=== PATIENT | female | born 1935 | race Caucasian/White ===

== ENCOUNTER 2020-07-05 09:16 | Outpatient (CLI) | payer MEDICARE, SELFPAY ==
--- NOTE | 2020-07-05 09:18 | ECG_ITS ---
Measurements Intervals [place] Rate: 72 P: 64 MI: 194 QRS: -11 QRSD: 85 T: 33 QT: 364 QTc: 399 Interpretive Statements SINUS RHYTHM BASELINE ARTIFACT- II, III, AVF NORMAL ECG Electronically Signed On 07-05-2020 10:02:56 CDT by Jamie Irwin D.O.
== END 2020-07-05 09:17 | disposition home or self-care (01) ==
LOC: ANHSURGERY 09:18
PROVIDERS: PCP Internal Medicine; Visit Provider Urology
DX: Z01.818 Encounter for other preprocedural examination (principal); I10 Essential (primary) hypertension
CPT/HCPCS: 93005

== ENCOUNTER 2020-07-11 01:06 | Outpatient (CLI) | payer MEDICARE, SELFPAY ==
[2020-07-11 19:20] LABS: SARS-CoV-2 RNA PCR Negative
== END 2020-07-11 01:07 | disposition home or self-care (01) ==
LOC: ANHCOVIDDT 01:06
PROVIDERS: PCP Internal Medicine; Visit Provider Urology
DX: Z01.812 Encounter for preprocedural laboratory examination (principal); Z20.828 Contact with and (suspected) exposure to other viral communicable diseases
CPT/HCPCS: 87635; C9803; U0003

== ENCOUNTER 2020-07-13 01:46 | Day surgery (SDC) | payer MEDICARE, SELFPAY ==
[2020-07-04 12:49] VITALS: BMI 25.8
--- NOTE | 2020-07-08 14:46 | PM.IMHP ---
H&P: HPI History of Present Illness Date/Time: 07/08/20 14:46 Chief complaint: Over active Bladder Narrative: Daisy Ash is a 85 year old female who desires Interstim removeal PMFSH Family History Family History (Updated 06/29/14 @ 07:13 by DOCTOR UNKNOWN) Father Family history of coronary artery disease Social History Social History Smoking status: Never smoker Second hand tobacco smoke exposure: No Alcohol intake: never Spiritual care concerns: No Meds Home Medications and Allergies Home Medications Medication Instructions Recorded Confirmed Type amlodipine 2.5 mg PO DAILY 07/04/20 07/04/20 History calcium carbonate-vitamin D3 1 tablet PO DAILY 07/04/20 07/04/20 History [Caltrate with Vitamin D3] cholecalciferol (vitamin D3) 125 mcg PO DAILY 07/04/20 07/04/20 History [Vitamin D3] clopidogrel 75 mg PO DAILY 07/04/20 07/04/20 History ketotifen fumarate [Zaditor] 1 drp OPHTHALMIC (EYE) BID 07/04/20 07/04/20 History levothyroxine 50 mcg PO DAILY 07/04/20 07/04/20 History multivitamin 1 tablet PO DAILY 07/04/20 07/04/20 History pramipexole 0.125 mg PO HS 07/04/20 07/04/20 History pravastatin 40 mg PO DAILY 07/04/20 07/04/20 History propranolol 80 mg PO HS 07/04/20 07/04/20 History Allergies Allergy/AdvReac Type Severity Reaction Status Date / Time pantoprazole [From Protonix] AdvReac Severe Hallucinati Verified 07/04/20 12:31 ng gabapentin AdvReac Mild Other Verified 07/04/20 12:31 ketorolac AdvReac Mild Nausea and Verified 07/04/20 12:31 Vomiting meperidine AdvReac Mild Nausea and Verified 07/04/20 12:31 Vomiting nitrofurantoin AdvReac Mild Diarrhea, Verified 11/25/18 13:08 Vomitting, Nausea Exam Const: General: no acute distress HENMT: Mouth: Yes moist mucous membranes Eyes: EOM: EOMs intact bilaterally Neck: Neck: supple Resp: Effort & Inspection: normal respiratory effort Cardio: Rate: regular rate GI: GI Palp: Yes Soft to palpation Skin: General skin exam: normal color Neuro: General: gait normal Extrem: General: normal to inspection Psych: Mental Status: mental status grossly normal Assessment and Plan Assessment and plan (1) Overactive bladder: Code(s): N32.81 - Overactive bladder Status: Acute Assessment and Plan: desires removal of her InterStim device
--- NOTE | 2020-07-13 07:29 | WPDHPUPDATE1 ---
History and Physical Update Update Date/Time: 07/13/20 07:29 History and Physical has been reviewed, including an updated exam of the patient. There are NO changes in the patient's condition. Risks, benefits, and alternatives have been discussed and questions answered. Patient agrees to proceed with procedure.
[2020-07-13 07:44] VITALS: BP 139/67; PULSE 75; RESP 18; TEMP 36.8; O2SAT 100
[2020-07-13] MEDS: LACTATED RINGERS 1,000 ML 30 ML IV CONT (08:00)
--- NOTE | 2020-07-13 08:03 | WPDANESEPP ---
Anes - Eval Pre Procedure Procedure: Operation Date: 07/13/20 09:30 Proposed Procedures p Removal of Interstim - Rhett Suleiman Fraga MD Date/Time: 07/13/20 08:03 Pre Op Diagnosis: Over active Bladder Patient Data Age: 85 Gender: F Height: 5 ft 4 in Weight: 68.3 kg Last Vital Signs Temp 98.2 F 07/13/20 07:44 Pulse 75 07/13/20 07:44 Resp 18 07/13/20 07:44 BP 139/67 07/13/20 07:44 Pulse Ox 100 07/13/20 07:44 Allergies Allergy/AdvReac Type Severity Reaction Status Date / Time pantoprazole [From Protonix] AdvReac Severe Hallucinati Verified 07/13/20 07:50 ng gabapentin AdvReac Mild Other Verified 07/13/20 07:50 ketorolac AdvReac Mild Nausea and Verified 07/13/20 07:50 Vomiting meperidine AdvReac Mild Nausea and Verified 07/13/20 07:50 Vomiting nitrofurantoin AdvReac Mild Diarrhea, Verified 07/13/20 07:50 Vomitting, Nausea Home Medications Medication Instructions Recorded Confirmed Type amlodipine 2.5 mg PO DAILY 07/04/20 07/13/20 History calcium carbonate-vitamin D3 1 tablet PO DAILY 07/04/20 07/13/20 History [Caltrate with Vitamin D3] cholecalciferol (vitamin D3) 125 mcg PO DAILY 07/04/20 07/13/20 History [Vitamin D3] clopidogrel 75 mg PO DAILY 07/04/20 07/13/20 History ketotifen fumarate [Zaditor] 1 drp OPHTHALMIC (EYE) BID 07/04/20 07/13/20 History levothyroxine 50 mcg PO DAILY 07/04/20 07/13/20 History multivitamin 1 tablet PO DAILY 07/04/20 07/13/20 History pramipexole 0.125 mg PO HS 07/04/20 07/13/20 History pravastatin 40 mg PO DAILY 07/04/20 07/13/20 History propranolol 80 mg PO HS 07/04/20 07/13/20 History Patient hx anesthesia problems: none Family hx anesthesia problems: none PMFSH Past Medical History Medical History (Updated 07/13/20 @ 08:06 by Og Reynolds CRNA) GERD (gastroesophageal reflux disease) HTN (hypertension) with goal to be determined Hypothyroidism Overactive bladder PROMISE (stress urinary incontinence, female) TIA (transient ischemic attack) TMJ (dislocation of temporomandibular joint) Family History Family History Father Family history of coronary artery disease Social History Social History Smoking status: Never smoker Second hand tobacco smoke exposure: No Alcohol intake: never Living arrangements: alone Spiritual care concerns: No Exam Day of Procedure 07/13/20 08:03 Patient weight: overweight Heart: regular rate and rhythm Lungs: clear to auscultation Airway: Mallampati scale class II Neurological: alert and oriented
--- NOTE | 2020-07-13 08:08 | P.PNAN_ITS ---
Anes - Eval Final PreProcedure Day of Procedure 07/13/20 08:08 Patient weight: overweight Heart: regular rate and rhythm Lungs: clear to auscultation Airway: Mallampati scale class II Neurological: other (alert) Last oral intake: >/= 8 hours ASA classification: III Emergent: no Anesthetic plan: proceed Anesthesia type and monitoring: general GIVS and standard monitoring Informed Consent: The patient's anesthetic plan and its attendant risks and b enefits were discussed with the patient/family/POA. Questions were solicited and answers provided to the satisfaction of the patient/family/POA.
[2020-07-13] MEDS: ceFAZolin 2 GM/D5W 50 ML 2 GM/50 ML BAG IVPB (08:12)
[2020-07-13] MEDS: BUPIVACAINE/EPINEPHRINE 0.25% 50 ML VIAL 10 ML INFILTRATE (08:31)
--- NOTE | 2020-07-13 08:44 | P.OP_ITS ---
Procedure Note - Detailed Date of procedure: 07/13/20 Pre-op diagnosis: Over active Bladder Post-op diagnosis: same Procedure performed: Removal InterStim device: 64797, [id number]. Description of procedure: She was correctly identified and informed consent obtained. From the operating room. She was given mac anesthesia. She was placed in a prone position. She was prepped and draped in a standard fashion. Time-out performed. I anesthetized the skin over the pulse generator. I incised the skin explained to the pulse generator. I removed the capsule. I located the side of the lead. Anesthetize the skin. I incised the skin. I fou nd the lead and removed in its entirety. Irrigate all wounds. Closed subcu tissues with 2 0 Vicryl stitch. Skin with 4 OVicryl. Glue was applied. He was awakened and taken to the PACU in stable condition. Anesthesia: MAC Surgeon: Rhett Fraag MD Estimated blood loss (mL): 1 Drains: No Packing: No Pathology: none sent Complications: No immediate complications Condition: stable Disposition: PACU
[2020-07-13 08:48] VITALS: BP 97/60; PULSE 65; RESP 16; O2SAT 95
[2020-07-13 09:15] VITALS: BP 130/67; PULSE 62; RESP 16; O2SAT 96
[2020-07-13 09:30] VITALS: BP 116/62; PULSE 61; RESP 14
== END 2020-07-13 09:47 | disposition home or self-care (01) ==
PROVIDERS: PCP Internal Medicine; Visit Provider Urology
PROC: (CPT 64585; principal; 2020-07-13 09:30)
DX: Z45.42 Encounter for adjustment and management of neurostimulator (principal); N32.81 Overactive bladder; N39.3 Stress incontinence (female) (male); I10 Essential (primary) hypertension; E03.9 Hypothyroidism, unspecified; K21.9 Gastro-esophageal reflux disease without esophagitis; Z79.02 Long term (current) use of antithrombotics/antiplatelets; Z86.73 Personal history of transient ischemic attack (TIA), and cerebral infarction without residual deficits
CPT/HCPCS: 64585; 64595; J0690; J1100; J1940; J2250; J2370; J2405; J2704; J3010; J7120

== ENCOUNTER 2022-10-16 01:23 | Day surgery (SDC) | payer MEDICARE, SELFPAY ==
[2022-10-08 08:37] VITALS: BMI 26.6
--- NOTE | 2022-10-16 09:09 | WPDANESEPPF ---
Anes - Initial Pre Proc Eval Procedure: Operation Date: 10/16/22 10:45 Proposed Procedures p Esophagogastroduodenoscopy & Colonoscopy - Rigo Aleman MD Date/Time: 10/16/22 09:09 Surgeon: Rigo Aleman MD Pre Op Diagnosis: abn xray,GERD,nausea,vomiting Patient Data Age: 87 Gender: F Height: 1.63 m Weight: 70.25 kg Allergies Allergy/AdvReac Type Severity Reaction Status Date / Time pantoprazole [From Protonix] Allergy Severe Hallucinati Verified 10/16/22 09:43 ng gabapentin Allergy Intermediate Numbness Verified 10/16/22 09:43 DACIA Inhibitors AdvReac Severe Cough Verified 10/16/22 09:43 ketorolac AdvReac Mild Nausea and Verified 10/16/22 09:43 Vomiting meperidine AdvReac Mild Nausea and Verified 10/16/22 09:43 Vomiting nitrofurantoin AdvReac Mild Diarrhea, Verified 10/16/22 09:43 Vomitting, Nausea Home Medications Medication Instructions Recorded Confirmed Type amlodipine 2.5 mg tablet 2.5 mg PO DAILY 07/04/20 10/08/22 History calcium carbonate 600 mg-vitamin 2 tablet PO DAILY 07/04/20 10/08/22 History D3 20 mcg (800 unit) tablet (Caltrate with Vitamin D3) clopidogrel 75 mg tablet 75 mg PO DAILY 07/04/20 10/08/22 History levothyroxine 50 mcg tablet 50 mcg PO DAILY 07/04/20 10/08/22 History multivitamin 1 tablet PO DAILY 07/04/20 10/08/22 History pramipexole 0.125 mg tablet 0.125 mg PO HS 07/04/20 10/08/22 History famotidine 40 mg tablet 40 mg PO BID 1 month #60 tabs 09/11/22 10/08/22 Rx pravastatin 40 mg tablet 40 mg PO DAILY #90 tabs 09/18/22 10/08/22 Rx propranolol 80 mg capsule,24 80 mg PO HS #90 caps 09/18/22 10/08/22 Rx hr,extended release Patient hx anesthesia problems: none Family hx anesthesia problems: none Results Review: All pre-operative results and documents have been reviewed as part of the pre-operative evaluation. [facility] Past Medical History Medical History (Updated 09/11/22 @ 15:09 by Luis Herbert MD) Back pain GERD (gastroesophageal reflux disease) GERD (gastroesophageal reflux disease) History of broken leg Both ankles History of vaginal delivery HTN (hypertension) with goal to be determined Hypothyroidism Mass of urethra Nausea and vomiting Need for vaccination Ovarian cyst Overactive bladder PROMISE (stress urinary incontinence, female) TIA (transient ischemic attack) TMJ (dislocation of temporomandibular joint) Surgical History Surgical History History of repair of rotator cuff Bilateral Family History Family History Father Family history of coronary artery disease Alcoholism Hypertension Thyroid disorder Social History Social History Smoking status: Never smoker Second hand tobacco smoke exposure: No Alcohol intake: never Substance use: never Substance use type: does not use Living arrangements: alone Spiritual care concerns: No Anes - Eval Final PreProcedure Day of Procedure 10/16/22 09:09 Patient weight: overweight Heart: regular rate and rhythm Lungs: clear to auscultation Airway: Mallampati scale class II Neurological: other (alert) Last oral intake: >/= 8 hours ASA classification: III Emergent: no Anesthetic plan: proceed Anesthesia type and monitoring: general GIVS and standard monitoring Results Review: All pre-operative results and documents have been reviewed as part of the pre-operative evaluation. Informed Consent: The patient's anesthetic plan and its attendant risks and benefits were discussed with the patient/family/POA. Questions were solicited and answers provided to the satisfaction of the patient/family/POA.
[2022-10-16 09:45] VITALS: BP 144/50; PULSE 74; RESP 18; TEMP 36.8; O2SAT 99
[2022-10-16] MEDS: LACTATED RINGERS 1,000 ML 150 ML IV CONT (10:06)
--- NOTE | 2022-10-16 10:22 | PM.HPGS ---
History of Present Illness History of Present Illness Consent: Risks, benefits, and alternatives have been discussed and questions answered. Patient agrees to proceed with procedure. Chief complaint: abn xray,GERD,nausea,vomiting Narrative: Daisy Ash is a 87 year old female Presents with multiple complaints. She is scheduled for colonoscopy an EGD today. Recently seen in the emergency room in [facility]. Also seen by nurse practitioner in the office. Patient complains of vomiting vague abdominal bloating. A CT scan in the Emergency Room raise a question of a lesion in the transverse colon. Patient has been given a trial of famotidine 40mg p.o. daily but has completed this. She states that did not help her intermittent vomiting. Patient states she has been vomiting intermittently for several years. And that it is improved over recent weeks. Her family history is noncontributory. Patient denies any weight loss or bleeding. She is a somewhat difficult historian. Review of Systems Review of Systems: Review of systems noncontributory. [facility] Past Medical History Medical History (Updated 10/16/22 @ 10:24 by Rigo Aleman MD) Back pain GERD (gastroesophageal reflux disease) GERD (gastroesophageal reflux disease) History of broken leg Both ankles History of vaginal delivery HTN (hypertension) with goal to be determined Hypothyroidism Mass of urethra Nausea and vomiting Need for vaccination Ovarian cyst Overactive bladder PROMISE (stress urinary incontinence, female) TIA (transient ischemic attack) TMJ (dislocation of temporomandibular joint) Surgical History Surgical History History of repair of rotator cuff Bilateral Family History Family History Father Family history of coronary artery disease Alcoholism Hypertension Thyroid disorder Social History Social History Smoking status: Never smoker Second hand tobacco smoke exposure: No Alcohol intake: never Substance use: never Substance use type: does not use Living arrangements: alone Spiritual care concerns: No Meds Home Medications and Allergies Home Medications Medication Instructions Recorded Confirmed Type amlodipine 2.5 mg tablet 2.5 mg PO DAILY 07/04/20 10/08/22 History calcium carbonate 600 mg-vitamin 2 tablet PO DAILY 07/04/20 10/08/22 History D3 20 mcg (800 unit) tablet (Caltrate with Vitamin D3) clopidogrel 75 mg tablet 75 mg PO DAILY 07/04/20 10/08/22 History levothyroxine 50 mcg tablet 50 mcg PO DAILY 07/04/20 10/08/22 History multivitamin 1 tablet PO DAILY 07/04/20 10/08/22 History pramipexole 0.125 mg tablet 0.125 mg PO HS 07/04/20 10/08/22 History famotidine 40 mg tablet 40 mg PO BID 1 month #60 tabs 09/11/22 10/08/22 Rx pravastatin 40 mg tablet 40 mg PO DAILY #90 tabs 09/18/22 10/08/22 Rx propranolol 80 mg capsule,24 80 mg PO HS #90 caps 09/18/22 10/08/22 Rx hr,extended release Allergies Allergy/AdvReac Type Severity Reaction Status Date / Time pantoprazole [From Protonix] Allergy Severe Hallucinati Verified 10/16/22 09:43 ng gabapentin Allergy Intermediate Numbness Verified 10/16/22 09:43 DACIA Inhibitors AdvReac Severe Cough Verified 10/16/22 09:43 ketorolac AdvReac Mild Nausea and Verified 10/16/22 09:43 Vomiting meperidine AdvReac Mild Nausea and Verified 10/16/22 09:43 Vomiting nitrofurantoin AdvReac Mild Diarrhea, Verified 10/16/22 09:43 Vomitting, Nausea Vital Signs Vital Signs - 24 hr 10/16/22 09:45 Temperature 98.3 F Pulse Rate 74 Respiratory Rate 18 Blood Pressure 144/50 H Pulse Oximetry 99 Oxygen Delivery Room Air Exam Narrative: Physical exam reveals patient to be alert. Vital signs stable. HEENT exam is unremarkable. Patient is anicteric. Lungs are clear t
--- NOTE | 2022-10-16 10:47 | SUR.OPER ---
EGD ended at 1041. Colonoscopy began at 1046.
[2022-10-16 11:02] VITALS: BP 104/54; PULSE 66; RESP 26; O2SAT 96
[2022-10-16 11:12] VITALS: BP 118/81; PULSE 61; RESP 24; O2SAT 100
[2022-10-16 11:22] VITALS: BP 126/70; PULSE 64; RESP 20; O2SAT 95
--- NOTE | 2022-10-16 11:22 | SUR.PHASEII ---
In addition to charted information patient received at discharge, pt also received information regarding bland diet.
== END 2022-10-16 11:35 | disposition home or self-care (01) ==
PROVIDERS: PCP Family Medicine; Visit Provider Internal Medicine Gastroenterology
PROC: 0DJ08ZZ Inspection of Upper Intestinal Tract, Via Natural or Artificial Opening Endoscopic (ICD-10-PCS; CPT 43235; principal; 2022-10-16 10:45)
DX: K51.40 Inflammatory polyps of colon without complications (principal); K57.30 Diverticulosis of large intestine without perforation or abscess without bleeding; K64.8 Other hemorrhoids; K26.3 Acute duodenal ulcer without hemorrhage or perforation; K21.00 Gastro-esophageal reflux disease with esophagitis, without bleeding; K44.9 Diaphragmatic hernia without obstruction or gangrene; I10 Essential (primary) hypertension; E03.9 Hypothyroidism, unspecified; Z86.73 Personal history of transient ischemic attack (TIA), and cerebral infarction without residual deficits; Z79.02 Long term (current) use of antithrombotics/antiplatelets
CPT/HCPCS: 45385; 43239; 87081; 88305; J2370; J2704; J7120

== ENCOUNTER 2025-05-04 15:39 | Emergency (ER) | payer MEDICARE, SELFPAY ==
--- OUTSIDE RECORDS SUMMARY | 2025-05-04 15:41 | XMS_ITS | Encounter Summary ---
Author Organization [facility] Address [address] [place] [address] Care Team Providers Care Lockstitch Sleeve Maker Name Role Phone Elvin Larson MD Primary Care Provider [phone] Luis Herbert MD Primary Care Provider [phone] Emilia Chavira PA-C Primary Care Provider [phone] Encounter Details Date Type Department Care Team (Late st Contact Info) Description 12/23/2019 Therapy Plan [facility] [employer] [facility] [address] [place], [place] [id number] Elvin Larson MD [address] [place], [place] [id number] Social History Tobacco Use Types Packs/Day Years Used Date Smoking Tobacco: Never Smokeless Tobacco: Never Alcohol Use Standard Drinks/Week Comments No 0 (1 standard drink = 0.6 oz pur e alcohol) Comments No Sex and Gender Information Value Date Recorded Sex Assigned at Female 02/07/2019 1:24 PM CDT Legal Sex Female 10:07 PM CDT Gender Identity Female 02/07/2019 1:24 PM CDT Sexual Orientation Straight 02/07/2019 1: 24 PM CDT Occupation Industry Job Start Date Job End Date Not on file Not on file Not on file Not on file documented as of this encounter Plan of Treatment Not on file documented as of this encounter Visit Diagnoses Not on filedocumented in this encounter Additional Health Concerns Infection Onset Date Last Indicated Resolved Time COVID-19 Rule Out 09/07/2022 09/07/2022 09/07/2022 8:38 AM RETAIL SUPPORT SPECIALIST documented as of this encounter Care Teams Lockstitch Sleeve Maker Relationship Specialty Start Date End Date Elvin Larson MD PCP - General 12/30/16 09/06/22 Luis Herbert MD [address] [place] [id number] PCP - General FAMILY PRACTICE 09/07/22 05/19/24 Emilia Chavira PA-C [address] [place] [id number] PCP - General PHYSICIAN HELICOPTER DISPATCHER 05/20/24 documented as of this encounter
--- OUTSIDE RECORDS SUMMARY | 2025-05-04 15:41 | XMS_ITS | Encounter Summary ---
Author Organization [facility] Address [address] [place] [address] Care Team Providers Care Coke Drawer Hand Name Role Phone Elvin Larson MD Primary Care Provider [phone] Luis Herbert MD Primary Care Provider [phone] Emilia Chavira PA-C Primary Care Provider [phone] Encounter Details Date Type Department Care Team (Late st Contact Info) Description 01/28/2018 Abstract [facility] CONVERSION [address] [place] [address] , Generic Conversion, Social History Tobacco Use Types Packs/Day Years Used Date Smoking Tobacco: Never Smokeless Tobacco: Never Alcohol Use Standard Drinks/Week Comments No 0 (1 standard drink = 0.6 oz pur e alcohol) Comments Unknown Sex and Gender Information Value Date Recorded [...] Rule Out 09/07/2022 09/07/2022 09/07/2022 8:38 AM DATA WAREHOUSE CONSULTANT documented as of this encounter Care Teams Coke Drawer Hand Relationship Specialty Start Date End Date Elvin Larson MD PCP - General 12/30/16 09/06/22 Luis Herbert MD [address] [place] [id number] PCP - General FAMILY PRACTICE 09/07/22 05/19/24 Emilia Chavira PA-C [address] [place], [place] [address] [place] [address] PCP - General PHYSICIAN ARCHIVES TECHNICIAN 05/20/24 documented as of this encounter
--- OUTSIDE RECORDS SUMMARY | 2025-05-04 15:41 | XMS_ITS | Encounter Summary ---
Author Organization [facility] Address [address] [place] [address] Care Team Providers Care Furnace Charger Name Role Phone Elvin Larson MD Primary Care Provider [phone] Ang Hammer MD Primary Care Provider [phone] Luis Herbert MD Primary Care Provider [phone] Emilia Chavira PA-C Primary Care Provider [phone] Encounter Details Date Type Department Care Team (Late st Contact Info) Description 12/20/2014 Abstract [facility] CONVERSION [address] [place] [address] , Generic Eduardo, Social History Tobacco Use Types Packs/Day Years Used Date Smoking Tobacco: Never Assessed Comments Unknown Sex and Gender Information Value Date Recorded Sex Assigned at Female 02/07/2019 1:24 PM CDT Legal Sex Female 10:07 PM CDT Gender Identity Female 02/07/2019 1:24 PM CDT Sexual Orientation Straight 02/07/2019 1: 24 PM CDT documented as of this encounter Plan of Treatment Not on file documented as of this encounter Visit Diagnoses Not on filedocumented in this encounter Additional Health Concerns Infection Onset Date Last Indicated Resolved Time COVID-19 Rule Out 09/07/2022 09/07/2022 09/07/2022 8:38 AM TIN ROOFER documented as of this encounter Care Teams Furnace Charger Relationship Specialty Start Date End Date Elvin Larson MD PCP - General 12/30/16 09/06/22 Ang Hammer MD PCP - General 07/01/12 12/29/16 Luis Herbert MD [address] [place] [id number] PCP - General FAMILY PRACTICE 09/07/22 05/19/24 Emilia Chavira PA-C [address] [place] [id number] PCP - General PHYSICIAN COMPLIANCE MANAGER 05/20/24 documented as of this encounter
--- OUTSIDE RECORDS SUMMARY | 2025-05-04 15:41 | XMS_ITS | Continuity of Care Document ---
Author Organization [facility] Address [address] [place] [address] Phone Care Team Providers Care Application Assistant Name Role Phone No Information Unavailable Unavailable Medications Medication Instructions Dosage Effective Dates (start - stop) Status Comments No Drug Therapy Prescribed Advance Directives Directive Yes / No Effective Date File Name No Information Encounters Encounter Description Practice Location Reason(s) For Visit Diagnoses Date Provider Providers Copied on Encounter [facility], [address] [place] [address], [address], [place] tel:[phone] No Information No Information Family History Family Member Type Diagnosis Age At Onset No Information Payers Payer name Insurance type Covered democrat ID Authoriza tion(s) No Information Social History Type Description Quantity Date Captured Comments Sex Female Smoking Status No Information Chief Complaint And Reason For Visit No Information History Of Present Illness Encounter Date Complaint History Of Prese nt Illness No Information Medications Administered Medication Instructions Dosage Effective Dates (start - stop) Status Comments No Drug Therapy Prescribed Instructions Date Instruction Additional Infor mation No Information Assessments Type Assessment Date No Information
--- OUTSIDE RECORDS SUMMARY | 2025-05-04 15:41 | XMS_ITS | Referral Summary ---
Author Organization [facility] Address [address] [place] [address] Care Team Providers Care Artificial Marble Worker Name Role Phone Elvin Larson MD Primary Care Provider [phone] Allergies Active Allergy Reactions Criticality Noted Date Comments Ketorolac Unknown 04/23/2020 Meperidine Unknown 04/23/2020 Nitrofurantoin Unknown 04/23/2020 Medications propranolol LA (INDERAL LA) 80 mg 24 hr capsule Take by mouth daily 03/16/2020 Active levothyroxine (SYNTHROID) 50 mcg tablet Take 50 mcg by mouth every morning 04/10/2020 Active amLODIPine (NORVASC) 2.5 mg tablet Take 2.5 mg by mouth daily 03/17/2020 Active clopidogreL (PLAVIX) 75 mg tablet Take 75 mg by mouth every morning 04/10/2020 Active pravastatin (PRAVACHOL) 40 mg tablet TAKE 1 TABLET BY MOUTH EVERYDAY AT BEDTIME 04/06/2020 Active pramipexole (MIRAPEX) 0.125 mg tablet Take 0.125 mg by mouth nightly at bedtime. 03/17/2020 Active methylPREDNISol one (MEDROL DOSEPACK) 4 mg DosepackIndicat ions:Otalgia of both ears,TMJ arthralgia Take as directed on package 1 packet 04/24/2020 Active Active Problems Problem Noted Date Diagnosed Date Otalgia of both ears 04/24/2020 TMJ arthralgia 04/24/2020 Social History Tobacco Use Types Packs/Day Years Used Date Smoking Tobacco: Never Smokeless Tobacco: Never Personal Safety Answer Date Recorded Getting School Help Needed Not on file 10/15 Comments Unknown Sex and Gender Information Value Date Recorded Sex Assigned at Not on file Legal Sex Female 8:48 AM CDT Gender Identity Not on file Sexual Orientation Not on file Last Filed Vital Signs Vital Sign Reading Time Taken Comments Blood Pressure - - Pulse - - Temperature 36.1 C (97 F) 04/24/2020 2:56 PM CDT Respiratory Rate - - Oxygen Saturation - - Inhaled Oxygen Concentration - - Weight 68 kg (150 lb) 04/24/2020 2:56 PM CDT Height 162.6 cm (5' 4) 04/24/2020 2:56 PM CDT Body Mass Index 25.75 04/24/2020 2:56 PM CDT Plan of Treatment Not on file Insurance MEDICARE tradeNOW GENERIC Care Teams Artificial Marble Worker Relationship Specialty Start Date End Date Elvin Larson MD [address] [place] [address] PCP - General Internal Medicine 04/02/20
--- OUTSIDE RECORDS SUMMARY | 2025-05-04 15:41 | XMS_ITS | Encounter Summary ---
Author Organization [facility] Address [address] [place] [address] Care Team Providers Care Employment Representative Name Role Phone Elvin Larson MD Primary Care Provider [phone] Ang Hammer MD Primary Care Provider [phone] Luis Herbert MD Primary Care Provider [phone] Emilia Chavira PA-C Primary Care Provider [phone] Encounter Details Date Type Department Care Team (Late st Contact Info) Description 09/29/2016 Abstract [facility] CONVERSION [address] [place] [address] , Generic Eduardo, Social History [...] Rule Out 09/07/2022 09/07/2022 09/07/2022 8:38 AM CLAIM TRAINEE documented as of this encounter Care Teams Employment Representative Relationship Specialty Start Date End Date Elvin Larson MD PCP - General 12/30/16 09/06/22 Ang Hammer MD PCP - General 07/01/12 12/29/16 Luis Herbert MD [address] [place] [address] PCP - General FAMILY PRACTICE 09/07/22 05/19/24 Emilia Chavira PA-C [address] [place] [address] PCP - General PHYSICIAN HEALTH SERVICES RN 05/20/24 documented as of this encounter
--- OUTSIDE RECORDS SUMMARY | 2025-05-04 15:41 | XMS_ITS | Clinical Summary ---
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 Medical History Medical History Date Comments Hypothyroidism GERD (gastroesophageal reflux disease) Arthritis Stroke (HCC) Migraines Hypertension Family History Medical History Relation Name Comments Cancer Other Relation Name Status Comments Other Social History Tobacco Use Types Packs/Day Years Used Date Smoking Tobacco: Never Smokeless Tobacco: Never Personal Safety Answer Date Recorded Getting School Help Needed Not on file 10/15 Comments Unknown Sex and Gender Information Value Date Recorded Sex Assigned at Not on file Legal Sex Female 8:48 AM CDT Gender Identity Not on file Sexual Orientation Not on file Obstetrics History Last Filed Vital Signs Vital Sign Reading [...] of Treatment Not on file Insurance MEDICARE [employer] Care Teams Target Setter Relationship Specialty Start Date End Date Elvin Larson MD [address] [place] [address] PCP - General Internal Medicine 04/02/20
--- OUTSIDE RECORDS SUMMARY | 2025-05-04 15:41 | XMS_ITS | Encounter Summary ---
Author Organization [facility] Address [address] [place] [address] Care Team Providers Care Music Manager Name Role Phone Elvin Larson MD Primary Care Provider [phone] Ang Hammer MD Primary Care Provider [phone] Luis Herbert MD Primary Care Provider [phone] Emilia Chavira PA-C Primary Care Provider [phone] Encounter Details Date Type Department Care Team (Late st Contact Info) Description 07/12/2015 Abstract [facility] CONVERSION [address] [place] [address] , Generic MD Eduardo Social History Tobacco Use Types Packs/Day Years [...] Rule Out 09/07/2022 09/07/2022 09/07/2022 8:38 AM COLLISION REPAIRER documented as of this encounter Care Teams Music Manager Relationship Specialty Start Date End Date Elvin Larson MD PCP - General 12/30/16 09/06/22 Ang Hammer MD PCP - General 07/01/12 12/29/16 Luis Herbert MD [address] [place] [address] PCP - General FAMILY PRACTICE 09/07/22 05/19/24 Emilia Chavira PA-C [address] [place] [address] PCP - General PHYSICIAN FIELD CONSULTANT 05/20/24 documented as of this encounter
--- OUTSIDE RECORDS SUMMARY | 2025-05-04 15:41 | XMS_ITS | Encounter Summary ---
Author Organization [facility] Address [address] [place] [address] Care Team Providers Care Door Attendant Name Role Phone Elvin Larson MD Primary Care Provider [phone] Ang Hammer MD Primary Care Provider [phone] Luis Herbert MD Primary Care Provider [phone] Emilia Chavira PA-C Primary Care Provider [phone] Encounter Details Date Type Department Care Team (Late st Contact Info) Description 03/15/2015 Abstract [facility] CONVERSION [address] [place] [address] , Generic Eduardo, Social History [...] Rule Out 09/07/2022 09/07/2022 09/07/2022 8:38 AM WAXER TENDER documented as of this encounter Care Teams Door Attendant Relationship Specialty Start Date End Date Elvin Larson MD PCP - General 12/30/16 09/06/22 Ang Hammer MD PCP - General 07/01/12 12/29/16 Luis Herbert MD [address] [place] [address] PCP - General FAMILY PRACTICE 09/07/22 05/19/24 Emilia Chavira PA-C [address] [place] [address] PCP - General PHYSICIAN RIB MATCHER AND FITTER 05/20/24 documented as of this encounter
--- OUTSIDE RECORDS SUMMARY | 2025-05-04 15:42 | XMS_ITS | Encounter Summary ---
Author Organization [facility] Address [address] [place] [address] Care Team Providers Care Nursing Aide Name Role Phone Elvin Larson MD Primary Care Provider [phone] Ang Hammer MD Primary Care Provider [phone] Luis Herbert MD Primary Care Provider [phone] Emilia Chavira PA-C Primary Care Provider [phone] Encounter Details Date Type Department Care Team (Late st Contact Info) Description 02/22/2013 Abstract [facility] CONVERSION [address] [place] [address] , Generic Eduardo, Social History [...] Rule Out 09/07/2022 09/07/2022 09/07/2022 8:38 AM FISCAL ASSISTANT documented as of this encounter Care Teams Nursing Aide Relationship Specialty Start Date End Date Elvin Larson MD PCP - General 12/30/16 09/06/22 Ang Hammer MD PCP - General 07/01/12 12/29/16 Luis Herbert MD [address] [place] [address] PCP - General FAMILY PRACTICE 09/07/22 05/19/24 Emilia Chavira PA-C [address] [place] [address] PCP - General PHYSICIAN REFRIGERATOR ROOM CLERK 05/20/24 documented as of this encounter
--- OUTSIDE RECORDS SUMMARY | 2025-05-04 15:42 | XMS_ITS | Encounter Summary ---
Author Organization [facility] Address [address] [place] [address] Care Team Providers Care Lead Java Developer Architect Name Role Phone Luis Herbert MD Primary Care Provider [phone] Emilia Chavira PA-C Primary Care Provider [phone] Encounter Details Date Type Department Care Team (Late st Contact Info) Description 12/07/2023 Therapy Plan [facility] [address] [place] [address] Emilia Chavira PA-C [address] [place], [place] [address] [place] [address] Social History Tobacco Use Types Packs/Day Years [...] documented as of this encounter Visit Diagnoses Diagnosis Age-related osteoporosis without current pathological fracture- Primary Senile osteoporosis documented in this encounter Care Teams Lead Java Developer Architect Relationship Specialty Start Date End Date Luis Herbert MD [address] [place] [address] PCP - General FAMILY PRACTICE 09/07/22 05/19/24 Emilia Chavira PA-C [address] [place], [place] [address] [place] [address] PCP - General PHYSICIAN NURSING ADMINISTRATOR 05/20/24 documented as of this encounter
--- OUTSIDE RECORDS SUMMARY | 2025-05-04 15:42 | XMS_ITS | Clinical Summary ---
Author Organization [facility] Address [address] [place] [address] Care Team Providers Care Chief Pharmacist Name Role Phone Emilia Chavira PA-C Primary Care Provider [phone] Allergies Active Allergy Reactions Criticality Noted Date Comments Meperidine Vomiting High 01/22/2018 Nitrofurantoin Nausea Only High 01/22/2018 Gabapentin Other (see comment) 06/01/2019 Numbness to face Prednisone Blurred vision 09/07/2022 Pt states causes confusion, crying, and depression B-Plex Plus Vomiting 09/07/2022 Proton Pump Inhibitors Hallucinations 9 Pantoprazole Hallucinations 09/07/2022 Sucralfate Vomiting 09/07/2022 Ketorolac Tromethamine Vomiting High 01/22/2018 Medications clopidogrel 75 MG tablet TAKE 1 TABLET BY MOUTH IN THE MORNING 6 01/12/2018 Active pramipexole 0.125 MG tablet Take 1 tablet (0.125 mg total) by mouth nightly at bedtime. at bedtime. 6 11/13/2017 Active pravastatin 40 MG tablet Take 1 tablet (40 mg total) by mouth nightly at bedtime. at bedtime. 1 11/13/2017 Active propranolol 80 MG 24 hr capsule Take 1 capsule (80 mg total) by mouth daily. 0 01/15/2018 Active Cholecalciferol (VITAMIN D) 1000 UNIT tablet Take 2 tablets (2,000 Units total) by mouth daily. Active acetaminophen-co deine 300-30 MG tablet TAKE 1 TO 2 TABLETS EVERY 8 HOURS NEEDED FOR PAIN 0 06/09/2018 Active amlodipine 2.5 MG tablet Take 1 tablet (2.5 mg total) by mouth daily. 1 10/29/2018 Active levothyroxine 50 MCG tablet Take 1 tablet (50 mcg total) by mouth daily. 04/28/2019 Active sucralfate 1 G tablet Take 1 tablet (1 g total) by mouth daily. 0 05/26/2019 Active acetaminophen (TYLENOL) 500 MG tablet Take 2 tablets (1,000 mg total) by mouth every 6 (six) hours as needed for Pain. Active pantoprazole EC (PROTONIX) 20 MG tabletIndication s:Gastroesophage al reflux disease with esophagitis without hemorrhage,Esoph ageal dysphagia Take 1 tablet (20 mg total) by mouth daily. 90 tablet 3 05/20/2024 05/20/20 25 Active Esomeprazole Magnesium (NEXIUM) 20 MG PackIndications: Esophagitis Take 20 mg by mouth daily. 90 each 3 05/20/2024 05/20/20 25 Active ciprofloxacin-hy drocortisone (CIPRO HC) otic suspension Place 3 drops into the right ear 2 (two) times daily for 10 days. 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 03/29/2024 Dysphagia, unspecified type 03/29/2024 Myofascial pain 12/29/2019 Age-related osteoporosis wit hout current pathological fracture 12/23/2019 Sacroiliitis 01/22/2018 Lumbar radiculopathy 01/22/2018 Encounters Date Type Department Care Team Description 2025 8:52 AM CDT - 2025 9:44 AM CDT Emergency [facility] Emergency Room [id number] [place] [address] Sarah Newby MD Earache Discharge Disposition: Home or Self Care (Routine Discharge) 2025 Travel 03/27/2025 10:22 AM CDT - 03/27/2025 11:40 AM CDT Emergency [facility] Emergency Room [address] [place] [address] Rigo Cadena MD Foot Pain (Right 4th) Discharge Disposition: Home or Self Care (Routine Discharge) 03/27/2025 Travel from Last 3 Months Family History Medical History Relation Comments Breast Cancer Daughter Cancer Father Relation Status Comments Daughter Alive Father Social History Tobacco Use Types Packs/Day Years Used Date Smoking Tobacco: Never Smokeless Tobacco: Never Tobacco Cessation:Counseling Given: Not Answered Alcohol Use Standard Drinks/Week Comments No 0 (1 standard drink = 0.6 oz pur e alcohol) PHQ-2 Answer Date Recorded Patient Health Questionnaire-2 Score 0 03/25/2024 Comments No Sex and Gender Information Value Date Recorded Sex Assigned at Female 02/07/2019 1:24 PM CDT Legal Sex Female 10:07 PM CDT Gender Identity Female 02/07/2019 1:24 PM CDT Sexual Orientation Straight 02/07/2019 1: 24 PM CDT Occupation Industry Job Start Date Job End Date Not on file Not on file Not on file Not on file Last Filed Vital Signs Vital Sign Reading Time Taken Comments Blood Pressure 185/85 2025 9:15 AM CDT Pulse 88 2025 8:53 AM CDT Temperature 36.6 C (97.9 F) 2025 8:53 AM CDT Respiratory Rate 18 2025 8:53 AM CDT Oxygen Saturation 96% 2025 8:53 AM CDT Inhaled Oxygen Concentration - - Weight 71 kg (156 lb 8.4 oz) 2025 8:53 AM CDT Height 162.6 cm (5' 4) 2025 8:53 AM CDT Body Mass Index 26.87 2025 8:53 AM CDT Plan of Treatment Health Maintenance Due Date Last Done Comments Pneumococcal Vaccine: 50+ Years (1 of 1 - PCV) 1987 Zoster Vaccines (1 of 2) 1987 Annual Medicare Wellness Visit 2002 RSV Immunization or 60+ Years (1 - 1-dose 75+ series) 2012 COVID-19 Vaccine (2023-2 5 season) 2024 01/03/2021, 12/06/2020 DTaP, Tdap and Td Vaccines ( 2 - Td or Tdap) 10/11/2024 10/11/2014 PHQ-2 (Physician [place]) 11/02/2024 03/25/2024 Meningococcal B Vaccine Aged Out No l onger eligible based on patient's age to complete this topic Meningococcal Vaccine Aged Out No fidencio preston eligible based on patient's age to complete this topic RSV Immunizations Under 20 Months Aged Out No longer eligible b ased on patient's age to complete this topic Procedures Procedure Name Priority Date/Time Associated Diagnosis Comments XR FOURTH TOE RT 3V STAT 03/27/2025 1 0:55 AM CDT from Last 3 Months Results * XR FOURTH TOE RT 3V (03/27/2025 10:55 AM CDT) Anatomical Region Laterality Modality Foot Radiographic Fanta ging 03/27/2025 10:5 6 AM CDT Impressions 03/27/2025 10:58 AM CDT IMPRESSION: Mildly displaced transverse fracture of the head of the fourth proximal phalanx. Referred By: Interpreted By: Juan Vizcaino MD, 03/27/2025 10:56 AM Narrative 03/27/2025 10:58 AM CDT [place] [id number] [place] [address] Examination: XR FOURTH TOE RT 3V Exam time: 03/27/2025 10:34 AM Indication: Fourth toe injury yesterday. Pain and bruising. Comparison: Right foot 08/25/2013 Findings: 3 views of the right fourth toe were obtained. There is a transverse fracture of the head of the fourth proximal phalanx with mild dorsal displacement. The joint spaces are preserved. No osseous destruction. Procedure Note Juan Vizcaino MD - 03/27/2025 [facility] [address] [address] [place] [id number] Examination: XR FOURTH TOE RT 3V Exam time: 03/27/2025 10:34 AM Indication: Fourth toe injury yesterday. Pain and bruising. Comparison: Right foot 08/25/2013 Findings: 3 views of the right fourth toe were obtained. There is atransverse fracture of the head of the fourth proximal phalanx with milddorsal displacement. The joint spaces are preserved. No osseousdestruction. IMPRESSION: Mildly displaced transverse fracture of the head of the fourthproximal phalanx. Referred By: Interpreted By: Juan Vizcaino MD, 03/27/2025 10:56 AM us Rigo Cadena MD GENERAL IMAGING Final Result from Last 3 Months Insurance [employer] Care Teams Chief Pharmacist Relationship Specialty Start Date End Date Emilia Chavira PA-C [address] [place], [place] [address] [place] [address] PCP - General PHYSICIAN HRBP 05/20/24
--- OUTSIDE RECORDS SUMMARY | 2025-05-04 15:42 | XMS_ITS | Encounter Summary ---
Author Organization [facility] Address [address] [place] [address] Care Team Providers Care Hat Body Inspector Name Role Phone Elvin Larson MD Primary Care Provider [phone] Ang Hammer MD Primary Care Provider [phone] Luis Herbert MD Primary Care Provider [phone] Emilia Chavira PA-C Primary Care Provider [phone] Encounter Details Date Type Department Care Team (Late st Contact Info) Description 08/02/2013 Abstract [facility] CONVERSION [address] [place] [address] , Generic Eduardo, Social History [...] Rule Out 09/07/2022 09/07/2022 09/07/2022 8:38 AM SUPERVISOR STENO POOL documented as of this encounter Care Teams Hat Body Inspector Relationship Specialty Start Date End Date Elvin Larson MD PCP - General 12/30/16 09/06/22 Ang Hammer MD PCP - General 07/01/12 12/29/16 Luis Herbert MD [address] [place] [address] PCP - General FAMILY PRACTICE 09/07/22 05/19/24 Emilia Chavira PA-C [address] [place] [address] PCP - General PHYSICIAN LEGAL CONTRACTS SPECIALIST 05/20/24 documented as of this encounter
--- OUTSIDE RECORDS SUMMARY | 2025-05-04 15:43 | XMS_ITS | Continuity of Care Document ---
Author Organization [facility] Address [address] [place] [address] Phone Care Team Providers Care Director Of Brand Marketing Name Role Phone No Information Unavailable Unavailable Medications Medication Instructions Dosage Effective Dates (start - stop) Status Comments No Drug Therapy Prescribed Advance Directives Directive Yes / No Effective Date File Name No Information Encounters Encounter Description Practice Location Reason(s) For Visit Diagnoses Date Provider Providers Copied on Encounter [facility], [address] [place] [address], [address], [place] tel:[phone] No Information No Information Family History Family Member Type Diagnosis Age At Onset No Information Payers Payer name Insurance type Covered libertarian ID Authoriza tion(s) No Information Social History [...]
[2025-05-04 15:48] VITALS: BP 120/70; PULSE 78; RESP 16; TEMP 36.6; O2SAT 99
--- NOTE | 2025-05-04 15:59 | ED_ITS ---
HPI - Ear Problem General Chief complaint: Ear Stated complaint: RT Ear Problems Time Seen by Provider: 05/04/25 15:55 Source: patient Mode of arrival: ambulatory Limitations: no limitations History of Present Illness HPI Narrative: Daisy is an 89-year-old female patient presenting to the clinic today with complaints of right otitis externa. She is coming in today from her PCPs office for an ear wick. States she was seen 3 days ago in the emergency room and they placed an ear wick however it has fallen out. Patient was unable to get her ear drops for 2 days. Is trying to instill the ear drops but the ear drops are not going down into her ear. Initially had yellow discharge coming from the ear canal but this has resolved. She denies any fevers, chills, body aches. No recent swimming. Related Data Home Medications ?Medication ?Instructions ?Recorded ?Confirmed ?Last Taken ?Type calcium 600 mg (as 2 tablet PO DAILY 07/04/20 03/09/25 10/15/22 History carbonate)-vitamin D3 20 mcg (800 unit) tablet (Caltrate with Vitamin D3) multivitamin 1 tablet PO DAILY 07/04/20 03/09/25 10/15/22 History Allergies Allergy/AdvReac Type Severity Reaction Status Date / Time metoclopramide (From Reglan) Allergy Severe Diarrhea Verified 05/04/25 14:34 pantoprazole (From Protonix) Allergy Severe Hallucinati Verified 05/04/25 14:34 ng gabapentin Allergy Intermediate Numbness Verified 05/04/25 14:34 Sulfa (Sulfonamide Allergy Intermediate Itching Verified 05/04/25 14:34 Antibiotics) DACIA Inhibitors AdvReac Severe Cough Verified 05/04/25 14:34 rabeprazole AdvReac Intermediate Hallucinati Verified 05/04/25 14:34 ng ketorolac AdvReac Mild Nausea and Verified 05/04/25 14:34 Vomiting meperidine AdvReac Mild Nausea and Verified 05/04/25 14:34 Vomiting nitrofurantoin AdvReac Mild Diarrhea, Verified 05/04/25 14:34 Vomitting, Nausea Review of Systems Review of Systems: Pertinent positives per HPI. Patient denies any fever, chills, rash, headache, visual changes, dizziness, cough, runny nose, sore throat, shortness of breath, chest pain, palpitations, nausea, vomiting, diarrhea, constipation, abdominal pain, or any urinary issues. [facility] Past Medical History Medical History Gastroparesis Diverticulosis Impaired fasting blood sugar Dyslipidemia Restless leg syndrome Risk for falls Hiatal hernia Abnormal CT scan Mass of urethra Ovarian cyst GERD (gastroesophageal reflux disease) History of broken leg Both ankles History of vaginal delivery Hypothyroidism HTN (hypertension) with goal to be determined PROMISE (stress urinary incontinence, female) TIA (transient ischemic attack) Overactive bladder Surgical History Surgical History History of cataract surgery History of ankle surgery bilateral History of repair of rotator cuff Bilateral Family History Family History Father Family history of coronary artery disease Alcoholism Hypertension Thyroid disorder Social History Social History Social History: 09/06/24 Somewhat confident with medical forms Smoking status: Never smoker Second hand tobacco smoke exposure: No Alcohol intake: never Substance use: never Substance use type: does not use Do You Feel Safe in your Home?: Yes Lack of Transportation: No Lack of Food: Never True Current Housing: I Have Housing Concerned About Future Housing: No Difficulty Paying Gas/Electric Bills: No Difficulty Paying for Meds: No Currently Unemployed: No Education: Associate Degree Difficulty w/ Childcare or Family Care: No Living arrangements: alone Occupation/Education: retired Gender identity (if verbalized by the patient): Female Sexual Orientation (if Verbalized by the Patient): Straight or Heterosexual Spiritual care concerns: No Comments At the time of my signature, I reviewed and agree with the nursing past medical, surgical, social, and family history. There is no relevant family history pe rtinent to the patient complaint. Exam Narrative: General: Well-developed, well nourished, in no apparent distress Head: Normocephalic, atraumatic Eyes: Pupils equally round and reactive to light bilaterally, EOM intact, sclera and conjunctive clear, no discharge, lids normal Ears: Left TM intact and clear, limited view of the right TM but it appears to be clear and intact, left ear canal clear, right ear canal swollen with very minimal patency, tenderness to palpation over the right tragus and pulling of the right pinna no drainage, grossly hearing normal. Nose: Nares patent, no discharge, no inflammation, no sinus tenderness. Mouth: Oropharynx without lesions or masses, good dentition, MMM. Neck: Supple, trachea midline, no enlargement of anterior or posterior cervical nodes, no thyroid masses or goiter palpable. Cardio: Regular rate and rhythm, s1 and s2 normal, no murmur appreciated. Resp: Clear to auscultation bilaterally anteriorly and posteriorly, no rhonchi, rales, wheezing or rubs Course Course Emergency Course: Portions of this record may have been created with voice recognition software. Level of Care: Express Care Visit Vital Signs Vital signs: Vital Signs Temperature 36.6 C 05/04/25 15:48 Pulse Rate 78 05/04/25 15:48 Respiratory Rate 16 05/04/25 15:48 Blood Pressure 120/70 05/04/25 15:48 Pulse Oximetry 99 05/04/25 15:48 Temperature 36.6 C 05/04/25 15:48 Pulse Rate 78 05/04/25 15:48 Respiratory Rate 16 05/04/25 15:48 Blood Pressure 120/70 05/04/25 15:48 Pulse Oximetry 99 05/04/25 15:48 Vital signs reviewed Medical Decision Making MDM Narrative Medical decision making narrative: At the time of visit patient is resting comfortably on the exam table. Patient appears to be nontoxic. Procedures: Two ear renata were inserted into the right ear canal. Patient tolerated fair. 3 gtt of patient Ciprodex Rx was instilled. Patient layed on left side x 15 minutes after instillation of drops. Plan: Patient has right otitis externa. Ear renata were inserted as discussed above. Cipro dex medication given- patients own Rx. Supportive measures were discussed with the patient and they voiced understanding discharge instructions and agrees to treatment plan. Return precautions reviewed Differential Diagnosis Differential Diagnosis: Otitis externa, eustachian tube dysfunction, cerumen impaction, otitis media, serous otitis Vital Signs Vital Signs: Vital Signs Temperature 36.6 C 05/04/25 15:48 Pulse Rate 78 05/04/25 15:48 Respiratory Rate 16 05/04/25 15:48 Blood Pressure 120/70 05/04/25 15:48 Pulse Oximetry 99 05/04/25 15:48 Temperature 36.6 C 05/04/25 15:48 Pulse Rate 78 05/04/25 15:48 Respiratory Rate 16 05/04/25 15:48 Blood Pressure 120/70 05/04/25 15:48 Pulse Oximetry 99 05/04/25 15:48 Discharge Plan Discharge Clinical Impression: External otitis of right ear Qualifiers: Otitis externa type: diffuse Chronicity: acute Qualified Code(s): H60.311 - Diffuse otitis externa, right ear Patient Disposition: Home Condition: Stable Instructions: Antibiotic Form, Swimmer's Ear (ED) Additional Instructions: Two ear renata were placed in the right ear canal in the clinic today Take any prescribed medications only as directed-Ciprodex Tylenol/motrin as needed for pain May use heating pad to alleviate pain If you get recurrent ear infections it may be warranted to follow up with ENT. Follow up with your PCP in 3-5 days if symptoms persist. Patient Language: Spanish Prescriptions: No Action famotidine 40 mg tablet 40 mg PO DAILY Qty: 90 1RF hydrocodone-acetaminophen 5-325 mg tablet 1 tablet PO Q8H PRN (Reason: pain) Qty: 20 0RF multivitamin Tablet 1 tablet PO DAILY calcium carbonate-vitamin D3 [Caltrate with Vitamin D3] 600 mg(1,500mg) -800 unit Tablet 2 tablet PO DAILY ondansetron 4 mg tablet,disintegrating 4 mg PO Q8H PRN (Reason: nausea and vomiting) Qty: 10 0RF propranolol 80 mg capsule,extended release 24 hr 80 mg PO QHS Qty: 90 1RF nitrofurantoin macrocrystal 100 mg capsule 100 mg PO Q12H Qty: 14 0RF Rx Instructions: must administer with a meal/food losartan 25 mg tablet 25 mg PO DAILY Qty: 90 0RF pravastatin 40 mg tablet 40 mg PO DAILY Qty: 90 0RF levothyroxine 50 mcg tablet 50 mcg PO DAILY Qty: 90 0RF clopidogrel 75 mg tablet 75 mg PO DAILY Qty: 90 0RF hydrocodone-acetaminophen 5-325 mg tablet 1 tablet PO Q8H PRN (Reason: pain) Qty: 8 0RF Follow-up/Referrals: Emilia Chavira PA-C [Primary Care Provider] - Time of Disposition: 15:58 Quality NIHSS Nursing Documentation ED NIHSS nursing documentation: reviewed/agree
== END 2025-05-04 16:10 | disposition home or self-care (01) ==
PROVIDERS: Emergency Provider Nurse Practitioner Family; PCP Physician Assistant Medical
DX: H60.311 Diffuse otitis externa, right ear (principal); I10 Essential (primary) hypertension; K31.84 Gastroparesis; E78.5 Hyperlipidemia, unspecified; G25.81 Restless legs syndrome; K21.9 Gastro-esophageal reflux disease without esophagitis; E03.9 Hypothyroidism, unspecified; Z86.73 Personal history of transient ischemic attack (TIA), and cerebral infarction without residual deficits; Z79.01 Long term (current) use of anticoagulants
CPT/HCPCS: 99211; G0463

== ENCOUNTER 2025-07-06 09:42 | Outpatient (CLI) | payer MEDICARE, SELFPAY ==
--- OUTSIDE RECORDS SUMMARY | 2025-07-06 10:04 | XMS_ITS | Clinical Summary ---
Author Organization [facility] [address] Address [address] [place] [address] Care Team Providers Care Strategic Planning Consultant Name Role Phone Elvin Larson MD Primary Care Provider [phone] Allergies Active Allergy Reactions Criticality Noted Date [...] of Treatment Not on file Insurance MEDICARE [employer] GENERIC Care Teams Strategic Planning Consultant Relationship Specialty Start Date End Date Elvin Larson MD [address] [place] [id number] PCP - General Internal Medicine 04/02/20
--- OUTSIDE RECORDS SUMMARY | 2025-07-06 10:05 | XMS_ITS | Patient Health Record ---
Author Organization [facility] Address [address] [place] [address] Care Team Providers Care Buildings And Grounds Coordinator Name Role Phone Imer Osman Primary Care Provider Reason For Referral No Information Immunizations Vaccine Route Administration Date Status Comme nts COVID-19 Moderna 2nd IM Intramuscular 01/03/2021 Administered EUA 10/2020. Patient tolerated well. COVID-19 Moderna 1ST IM Intramuscular 12/06/2020 Administered EUA date 0. Screening reviewed and consent signed. Patient tolerated well. Plan Of Treatment No Information Insurance Providers Payer Name Payer Address Payer Phone Subscriber Number Group Number Insured Name Patient Relationship to Insured Coverage Start Date Coverage End Date MEDICARE PART A [address] [place] [id number] Daisy Ash Self - patient is the insured 2
== END 2025-07-06 09:43 | disposition home or self-care (01) ==
LOC: ANHAUDIO 09:43
PROVIDERS: PCP Physician Assistant Medical; Visit Provider Otolaryngology
DX: H90.3 Sensorineural hearing loss, bilateral (principal)
CPT/HCPCS: 92557; 92567